=== PATIENT | male | born 1995 | race Caucasian/White ===

== ENCOUNTER 2020-12-12 07:04 | Emergency (ER) | payer BC ==
[~2020-12-12] VITALS: Ht 177.8 cm; Wt 95.2 kg
--- NOTE | 2020-12-12 07:37 | ED Psychosocial ---
General Chief Complaint: Suicidal Ideation Risk Stated Complaint: PSYCH EVAL-SUICIDAL IDEATIONS Source: patient Exam Limitations: no limitations History of Present Illness Date Seen by Provider: December 12, 2020 Time Seen by Provider: 07:25 Initial Comments Patient is a 25-year-old male who presents to the emergency department today with a chief complaint of increasing depressive symptoms and suicidal ideation. Patient states that he has struggled with depression for most of his life. He states that in recent weeks that he has had increasing thoughts of suicide. He states that he feels like he would take all of his medications or hang himself. Patient attributes the majority of his symptoms to poor family interactions, being estranged from his parents as well as a very stressful work environment. 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 He states that he has been missing increased amounts of work. States that he has had about a 30 pound weight loss over the last 3 months. He is not eating very well. He states his sleep is okay because some of his prescribed medications help with sleep. Patient states that he sees a mental health provider through [facility], once a months. He states its been about a month since he has seen his provider. He denies any recent illnesses such as fevers, chills, cough, congestion. No abdominal pain nausea vomiting. Patient states that he tends to have more diarrhea during stressful times. He has had that currently. All other review of systems reviewed and negative except as stated above. Timing/Duration: getting worse Severity: severe Associated Symptoms: suicidal ideation Allergies and Home Medications Allergies Coded Allergies: guaifenesin (Verified Allergy, Unknown, 12/12/20) Patient Home Medication List Home Medication List Reviewed: Yes Review of Systems Constitutional: see HPI EENTM: no symptoms reported Respiratory: no symptoms reported Cardiovascular: no symptoms reported Gastrointestinal: diarrhea Genitourinary: no symptoms reported Musculoskeletal: no symptoms reported Skin: no symptoms reported Psychiatric/Neurological: Depressed, Emotional Problems All Other Systems Reviewed Negative Unless Noted: Yes Physical Exam Vital Signs - First Documented 12/12/20 07:15 Temp 36.4 Pulse 65 Resp 18 B/P (MAP) 129/89 (102) Pulse Ox 97 O2 Delivery Room Air Capillary Refill : Height, Weight, BMI Height: '" Weight: lbs. oz. kg; BMI Method: General Appearance: WD/WN, no apparent distress HEENT: PERRL/EOMI Neck: normal inspection Respiratory: lungs clear, normal breath sounds, no respiratory distress, no accessory muscle use Cardiovascular: regular rate, rhythm, no edema, no gallop Gastrointestinal: normal bowel sounds, non tender, soft, no organomegaly Extremities: non-tender, normal inspection, no pedal edema Neurologic/Psychiatric: alert, normal mood/affect, oriented x 3 Appearance/Memory: appropriate appearance, appropriate insight, neat, no memory impairment Behavior/Eye Contact: cooperative, good eye contact, normal speech Thoughts/Hallucinations: normal thought pattern, no apparent hallucination Skin: normal color, warm/dry Progress/Results/Core Measures Results/Orders Lab Results Laboratory Tests Test 12/12/20 07:30 Range/Units White Blood Count 6.0 4.3-11.0 10^3/uL Red Blood Count 5.67 H 4.30-5.52 10^6/uL Hemoglobin 15.9 13.3-17.7 g/dL Hematocrit 49 40-54 % Mean Corpuscular Volume 86 80-99 fL Mean Corpuscular Hemoglobin 28 25-34 pg Mean Corpuscular Hemoglobin Concent 33 32-36 g/dL Red Cell Distribution Width 13.1 10.0-14.5 % Platelet Count 246 130-400 10^3/uL Mean Platelet Volume 9.8 9.0-12.2 fL Immature Granulocyte % (Auto) 1 % Neutrophils (%) (Auto) 54 42-75 % Lymphocytes (%) (Auto) 34 12-44 % Monocytes (%) (Auto) 7 0-12 % Eosinophils (%) (Auto) 3 0-10 % Basophils (%) (Auto) 1 0-10 % Neutrophils # (Auto) 3.3 1.8-7.8 10^3/uL Lymphocytes # (Auto) 2.1 1.0-4.0 10^3/uL Monocytes # (Auto) 0.4 0.0-1.0 10^3/uL Eosinophils # (Auto) 0.2 0.0-0.3 10^3/uL Basophils # (Auto) 0.0 0.0-0.1 10^3/uL Immature Granulocyte # (Auto) 0.0 0.0-0.1 10^3/uL Sodium Level 139 135-145 MMOL/L Potassium Level 4.1 3.6-5.0 MMOL/L Chloride Level 103 98-107 MMOL/L Carbon Dioxide Level 22 21-32 MMOL/L Anion Gap 14 5-14 MMOL/L Blood Urea Nitrogen 13 7-18 MG/DL Creatinine 0.87 0.60-1.30 MG/DL Estimat Glomerular Filtration Rate > 60 BUN/Creatinine Ratio 15 Glucose Level 115 H 70-105 MG/DL Calcium Level 9.9 8.5-10.1 MG/DL Corrected Calcium 8.5-10.1 MG/DL Total Bilirubin 0.5 0.1-1.0 MG/DL Aspartate Amino Transf (AST/SGOT) 16 5-34 U/L Alanine Aminotransferase (ALT/SGPT) 15 0-55 U/L Alkaline Phosphatase 60 40-136 U/L Total Protein 7.5 6.4-8.2 GM/DL Albumin 4.7 H 3.2-4.5 GM/DL Salicylates Level < 5.0 L 5.0-20.0 MG/DL Urine Opiates Screen NEGATIVE NEGATIVE Urine Oxycodone Screen NEGATIVE NEGATIVE Urine Methadone Screen NEGATIVE NEGATIVE Urine Propoxyphene Screen NEGATIVE NEGATIVE Acetaminophen Level < 10 L 10-30 UG/ML Urine Barbiturates Screen NEGATIVE NEGATIVE Ur Tricyclic Antidepressants Screen NEGATIVE NEGATIVE Urine Phencyclidine Screen NEGATIVE NEGATIVE Urine Amphetamines Screen NEGATIVE NEGATIVE Urine Methamphetamines Screen NEGATIVE NEGATIVE Urine Benzodiazepines Screen NEGATIVE NEGATIVE Urine Cocaine Screen NEGATIVE NEGATIVE Urine Cannabinoids Screen POSITIVE H NEGATIVE Serum Alcohol < 10 <10 MG/DL My Orders Orders - RAJ BURNS MD Ekg Tracing (12/12/20 08:05) Cbc With Automated Diff (12/12/20 08:05) Comprehensive Metabolic Panel (12/12/20 08:05) Salicylate (12/12/20 08:05) Acetaminophen (12/12/20 08:05) Alcohol (12/12/20 08:05) Drug Screen Stat (Urine) (12/12/20 08:05) General/Regular (12/12/20 Breakfast) Vital Signs/I&O 12/12/20 07:15 Temp 36.4 Pulse 65 Resp 18 B/P (MAP) 129/89 (102) Pulse Ox 97 O2 Delivery Room Air Progress Progress Note : Time: 12:16 Progress Note Patient seen and examined, 25-year-old male with a history of depression and increasing suicidal thoughts. Evaluation today includes medical clearance labs and an EKG. His labs have been reviewed and are unremarkable. He has a urine drug screen positive for THC. Mental health screener has evaluated the patient and did recommend some inpatient treatment. He does not meet criteria for involuntary commitment at this time. The patient prefers to increase the frequency and intensity of his outpatient therapy sessions. He is not interested in inpatient treatment at this time. He has a safe place to go which is home with his girlfriend. She is going to keep an eye on him for the next 24 to 48 hours, she is going to dispense his home medications. He will be contacted by [facility] on Monday for a follow-up. He is comfortable and desires discharge. He states that his suicidality has decreased since he has been here in the emergency department. He is not actively psychotic. He again does not meet criteria for involuntary commitment. He is going to call and increase the frequency of his therapy visits with [facility]. Safety plan was written by the mental health screener. Was signed by all parties involved. Patient will be discharged home with his significant other. Initial ECG Impression Date: December 12, 2020 Initial ECG Impression Time: 07:19 Initial ECG Rate: 58 Initial ECG Rhythm: Normal Sinus Initial ECG Intervals: Normal Initial ECG Impression: Normal Departure Impression Primary Impression: Depression Qualified Codes: F32.9 - Major depressive disorder, single episode, unspecified Additional Impression: Suicidal ideation Disposition: 01 HOME, SELF-CARE Condition: Stable Departure-Patient Inst. Decision time for Depature: 12:19 [address]errals: [facility]/SANJAY DARLING,LOCAL PHYSICIAN (PCP) Primary Care Physician Patient Instructions: OUTPT MENTAL HEALTH SERVICES, Depression, Adult ED Add. Discharge Instructions: Please call [facility] for a follow-up appointment for therapy on Monday or Monday as they are available. Please come back to the emergency room if you have any worsening depressive th oughts, suicidal thoughts or any other emergent concerns. Utilize the resources as provided by [facility] services today. Do not hesitate to reach out as needed or return to the emergency room. RAJ BURNS MD December 12, 2020 07:37
[2020-12-12 08:12] LABS: BASOPHILS % (AUTO) 1 % (0-10); EOSINOPHILS # (AUTO) 0.2 10^3/uL (0.0-0.3); EOSINOPHILS % (AUTO) 3 % (0-10); HEMATOCRIT 49 % (40-54); HEMOGLOBIN 15.9 g/dL (13.3-17.7); LYMPHOCYTES # (AUTO) 2.1 10^3/uL (1.0-4.0); LYMPHOCYTES % (AUTO) 34 % (12-44); MEAN CORPUSCULAR HEMOGLOBIN 28 pg (25-34); MEAN CORPUSCULAR HGB CONC 33 g/dL (32-36); MEAN CORPUSCULAR VOLUME 86 fL (80-99); MEAN PLATELET VOLUME 9.8 fL (9.0-12.2); MONOCYTES # (AUTO) 0.4 10^3/uL (0.0-1.0); MONOCYTES % (AUTO) 7 % (0-12); NEUTROPHILS # (AUTO) 3.3 10^3/uL (1.8-7.8); NEUTROPHILS % (AUTO) 54 % (42-75); PLATELET COUNT 246 10^3/uL (130-400)
[2020-12-12 08:16] LABS: ALBUMIN 4.7 GM/DL (3.2-4.5); CHLORIDE 103 MMOL/L (98-107); POTASSIUM 4.1 MMOL/L (3.6-5.0); SODIUM 139 MMOL/L (135-145)
[2020-12-12 08:17] LABS: CALCIUM 9.9 MG/DL (8.5-10.1)
[2020-12-12 08:19] LABS: GLUCOSE 115 MG/DL (70-105); TOTAL PROTEIN 7.5 GM/DL (6.4-8.2)
[2020-12-12 08:20] LABS: BILIRUBIN,TOTAL 0.5 MG/DL (0.1-1.0); CARBON DIOXIDE 22 MMOL/L (21-32)
[2020-12-12 08:22] LABS: CREATININE SERUM 0.87 MG/DL (0.60-1.30); GFR ESTIMATED > 60
[2020-12-12 08:23] LABS: ALKALINE PHOSPHATASE 60 U/L (40-136)
[2020-12-12 08:24] LABS: ACETAMINOPHEN < 10 UG/ML (10-30); BUN/CREATININE RATIO 15
[2020-12-12 08:25] LABS: AMPHETAMINE SCREEN, URINE NEGATIVE (NEGATIVE); BARBITURATE SCREEN URINE NEGATIVE (NEGATIVE); BENZODIAZEPINES SCREEN URINE NEGATIVE (NEGATIVE); CANNABINOID SCREEN, URINE POSITIVE (NEGATIVE); COCAINE SCREEN URINE NEGATIVE (NEGATIVE); METHADONE STAT NEGATIVE (NEGATIVE); METHAMPHETAMINE SCREEN URINE S NEGATIVE (NEGATIVE); OPIATE SCREEN URINE NEGATIVE (NEGATIVE); OXYCODONE STAT NEGATIVE (NEGATIVE); PROPOXYPHENE STAT NEGATIVE (NEGATIVE); SALICYLATE < 5.0 MG/DL (5.0-20.0); TRICYCLIC ANTIDEPRESSANTS SCRE NEGATIVE (NEGATIVE)
[2020-12-12 08:26] LABS: ALANINE AMINOTRANSFERASE 15 U/L (0-55)
[2020-12-12] MEDS ORDERED: PRAZ2CAP2 (09:32)
[2020-12-12] MEDS ORDERED: DESV100T16 (09:32)
[2020-12-12 12:30] VITALS: BP 132/87
== END 2020-12-12 12:30 | disposition home or self-care (01) ==
LOC: EDUNIT# 07:04 → ER 07:07
DX: R45.851 Suicidal ideations (principal); F32.9 Major depressive disorder, single episode, unspecified
CPT/HCPCS: 80053; 80306; 85025; 99283; G0480 ×3; 36415; 80320; 80329

== ENCOUNTER 2021-03-30 21:19 | Emergency (ER) | payer SELFPAY ==
[~2021-03-30] VITALS: Ht 180 cm; Wt 95.2 kg
[~2021-03-30 21:19] MED LIST: DESV100T16; PRAZ2CAP2
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
--- OUTSIDE RECORDS SUMMARY | 2021-03-30 21:23 | XMS REPORT | Clinical Summary ---
Author Author [facility][Note 3] Address Unknown Phone Unavailable Care Team Providers Care 3D Modeler Name Role Phone Unassigned, None PCP Unavailable Allergies Comments Active Allergy Reactions Severity Noted Date Guaifenesin Hives 01/26/2021 Medications End Date Status Medication Sig Dispensed Refills Start Date Active Cholecalciferol (VITAMIN Take 1 0 D3) 50 MCG (1999) CAPS capsule by mouth at bedtime. Active prazosin (MINIPRESS) 2 MG Take 4 mg by 0 capsule mouth at bedtime. Active ARIPiprazole (ABILIFY) 5 Take 5 mg by 0 MG tablet mouth at bedtime. Active Desvenlafaxine ER 100 MG Take 100 mg 0 TB24 by mouth at bedtime. Active hydrOXYzine (ATARAX) 50 Take 1 tablet 30 tablet 0 MG tabletIndications: (50 mg total) 1 Other specified anxiety by mouth 2 disorders (two) times daily as needed for Anxiety (or sleep). Active buPROPion (WELLBUTRIN XL) Take 1 tablet 30 tablet 0 150 MG 24 hr (150 mg 1 tabletIndications: Mood total) by disorder (HCC) mouth daily. 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 How often do you get together with friends or Twice a week 01/27/2021 relatives? How often do you attend pentecostal or orthodox Never 01/27/2021 services? Do you belong to any clubs or organizations such No 01/27/2021 as pentecostal groups, unions, fraternal or athletic groups, or [...] file Not on file Not on file Last Filed Vital Signs Reading Time Taken Comments Vital Sign 148/85 01/28/2021 9:18 AM CDT Blood Pressure 94 01/28/2021 9:18 AM CDT Pulse 36.9 C (98.5 F) 01/28/2021 9:17 AM CDT Temperature 16 01/27/2021 7:24 PM CDT Respiratory Rate 99% 01/28/2021 9:18 AM CDT Oxygen Saturation - - Inhaled Oxygen Concentration 92.5 kg (204 lb) 01/26/2021 10:51 AM CDT Weight 182.9 cm (6') 01/26/2021 10:51 AM CDT Height 27.67 01/26/2021 10:51 AM CDT Body Mass Index Plan of Treatment Health Maintenance Due Date Last Done Comments HPV Vaccines (1 - Male 2006 2-dose series) Varicella Vaccines (2 of 03/26/2009 02/26/2009 2 - 13+ 2-dose series) Hepatitis C Screening 2013 DTaP,Tdap,and Td Vaccines 2014 (1 - Tdap) MMR Vaccines-Adult 2014 COVID-19 Vaccine (2 - 03/01/2021 02/08/2021 Pfizer 2-dose series) Influenza Vaccine (#1) 2021 Pneumo-Vaccine: 65+Yrs (1 2060 of 1 - PPSV23) HIB Vaccines Aged Out No longer eligible based on patient's age to complete this topic IPV Vaccines Aged Out No longer eligible based on patient's age to complete this topic Meningococcal Vaccine Aged Out No longer eligib le based on patient's age to complete this topic Pneumo-Vaccine: Peds (0-5 Aged Out No longer el igible based on patient's age to Yrs) & At-Risk Patients complete this topic (6-64 Yrs) Rotavirus Vaccines Aged Out No longer eligible based on patient's age to complete this topic Procedures Comments Procedure Name Priority Date/Time Associated Diag nosis DRUG SCREEN (8) MEDICAL Routine 01/28/2021 5:53 AM CDT CBC WITH AUTO Timed 01/27/2021 DIFFERENTIAL 6:01 AM CDT LIPID PANEL Timed 01/27/2021 6:01 AM CDT TSH (REFLEX FREE T4 IF Timed 01/27/2021 ABNORMAL) 6:01 AM CDT COMPREHENSIVE METABOLIC Timed 01/27/2021 PANEL 6:01 AM CDT CBC AND DIFFERENTIAL Timed 01/27/2021 6:01 AM CDT VITAMIN D2/D3 TOTAL Routine 01/26/2021 1:27 PM CDT POC COVID-19 ANTIGEN, Routine 01/26/2021 VERITOR 10:20 AM CDT from Last 3 Months Results * Drug Screen (8) Medical (01/28/2021 5:53 AM CDT) Amphetamine Negative Negative Cutoff [address] [place] [place] ng/mL LAB[facility]ORY Barbiturates Negative Negative Cutoff [address] [place] ng/mL [facility] Benzodiazepines Negative Negative Cutoff [address] [place] ng/mL [facility] Opiates Negative Negative Cutoff [address] [place] ng/mL [facility] PCP Negative Negative Cutoff [address] [place] ng/mL [facility] THC Positive (A) Negative Cutoff [address] [place] ng/mL [facility] MDMA Positive (A) Negative Cutoff [address] [place] ng/mL [facility] Cocaine Negative Negative Cutoff [address] [place] (Metabolite) ng/mL LABORATORY pH, UA 6.5 5.0 - 8.0 [place] [facility] Specific 1.040 (H)Comment: Specimen is 1.003 - 1.030 [facility] [place], UA abnormally concentrated LABORATORY (>1.030) suggesting patient fluid restriction or specimen tampering. [id number] [facility] y Protocol LABORATORY Specimen Urine - Urine specimen (specimen) Narrative [facility] - 01/29/2021 8:09 AM CDT Results not confirmed. May not meet forensic requirements. Confirmation by GC/MS available upon request. Performing Organization Address City/State/ZIP Code P jaci Number [facility] [address] [place] [address] * CBC auto differential (01/27/2021 6:01 AM CDT) WBC 7.7 3.5 - 10.5 10E9/L [facility] RBC 5.57 4.32 - 5.72 10E12/L [facility] Hemoglobin 15.4 13.5 - 17.5 g/dL [facility] Hematocrit 48.6 38.8 - 50.0 % [facility] MCV 87.3 81.2 - 95.1 fL [facility] MCH 27.6 26.0 - 34.0 pg [facility] MCHC 31.7 31.0 - 37.0 g/dL [facility] RDW 13.0 11.8 - 15.6 % [facility] Platelets 252 150 - 450 10E9/L [facility] nRBC 0.00 <=0.00 10E9/L [facility] Neutrophils % 56.1 40.0 - 75.0 % [facility] Lymphocytes % 32.8 22.0 - 49.0 % [facility] Monocytes % 7.6 2.0 - 10.0 % [facility] Eosinophils % 2.6 <=5.0 % [facility] Basophils % 0.9 0.0 - 2.5 % [facility] Neutrophils 4.33 1.70 - 7.00 10E9/L [facility] [place] [facility] Lymphocytes 2.53 0.90 - 2.90 10E9/L [facility] [place] [facility] Monocytes 0.59 0.30 - 0.90 10E9/L [facility] Absolute LAB[facility] Eosinophils 0.20 0.05 - 0.50 10E9/L [facility] Absolute [facility] Basophils 0.07 0.00 - 0.30 10E9/L [facility] Absolute LAB[facility] % nRBC 0 % [facility] Specimen Blood Performing Organization Address City/[facility] P jaci Number [facility] [address] [place] [address] * TSH (Reflex Free T4 if abnormal) (01/27/2021 6:01 AM CDT) Pathologist [facility] TSH 1.576 0.400 - 4.000 uIU/mL [facility] Specimen Blood Performing Organization Address [facility] P jaci Number [facility] [address] [place] [address] * Lipid panel (01/27/2021 6:01 AM CDT) [facility] Cholesterol 134 <=200 mg/dL [facility] Triglycerides 145 0 - 149 mg/dL [facility] HDL <28 (L) 40 - 90 mg/dL [facility] Non-HDL Comment: Unable to calculate [facility] Cholesterol due to one or both results out LABORA TORY of reportable range. Specimen Blood Narrative [facility] - 01/27/2021 7:44 AM CDT [facility] GUIDLINES FOR LDL: Optimal: <100 mg/dL Near Optimal: 100-129 mg/dL Borderline High: 130-159 mg/dL High: 160-189 mg/dL Very High: >=190 mg/dL Performing Organization Address City/[facility] P jaci Number [facility] [address] [place] [address] * Comprehensive metabolic panel (01/27/2021 6:01 AM CDT) [facility] Sodium 142 136 - 145 mmol/L [facility] Potassium 4.4 3.6 - 4.9 mmol/L [facility] Chloride 109 99 - 111 mmol/L [facility] CO2 27 20 - 36 mmol/L [facility] Anion Gap [address] [facility] [facility] Glucose 101 74 - 106 mg/dL [facility] Total Protein 6.8 5.7 - 8.2 g/dL [facility] Albumin 4.8 3.4 - 4.8 g/dL [facility] Calcium 9.4 8.3 - 10.6 mg/dL [facility] BUN, Bld 18 6 - 20 mg/dL [facility] Creatinine 1.01 0.60 - 1.20 mg/dL [facility] L [facility] eGFR >59 >59 mL/min [facility] Total Bilirubin 0.8 0.0 - 1.2 mg/dL [facility] Alkaline 62 29 - 122 U/L [facility] Phosphatase LABORATORY ALT 12 10 - 46 U/L [facility] AST 18 16 - 37 U/L [facility] Specimen Blood Performing Organization Address City/[facility] P jaci Number [facility] [address] [place] [id number] * Vitamin D2/D3 Total (01/26/2021 1:27 PM CDT) [facility] Vitamin D2/D3 28 (L) 30 - 100 ng/ml [facility] Total LABORATORY Specimen Blood Narrative [facility] - 01/26/2021 2:38 PM CDT < 20 ng/mL Deficiency 20- 30 ng/mL Insufficiency 30-100 ng/mL Sufficiency > 100 ng/mL Consider toxicity The reference range for total Vitamin D, 25-Hydroxy is based on correlation with parameters that include PTH concentration and calcium absorption. The range is not based on the distribution of levels in an apparently healthy population. Please note new methodology and reference range. Performing Organization Address City/[facility] P jaci Number [facility] [address] [place] [address] * POC COVID-19 ANTIGEN, VERITOR (01/26/2021 10:20 AM CDT) Pathologist [facility] POC COVID-19 Negative Negative Antigen, Veritor Internal QC Pass Kit lot number [id number] Kit Exp Date 04/20/2021 Specimen Nasopharyngeal - Swab of internal nose (specimen) from Last 3 Months Insurance Type Payer Benefit Subscriber ID Effective Phone Address Plan / Dates Group MEDICAID POTENTIAL MEDICAID [id number] 2021- [address] [place] [address] Advance Directives For more information, please contact: [phone] Patient Author Explanation Type Date Recorded Advance Directives and Living Will Power of Aircraft Design Engineer Date Inactivated Comments Code Status Date Activated Full Code 01/28/2021 10:24 AM 01/28/2021 10:24 AM Full Code 01/26/2021 11:49 AM Care Teams Start Date End Date 3D Modeler Relationship Specialty 01/26/21 Unassigned, None PCP - General [place]
[2021-03-30 21:50] LABS: BILIRUBIN,URINE NEGATIVE (NEGATIVE); CLARITY,URINE CLEAR; COLOR,URINE YELLOW; GLUCOSE, URINE (UA) NEGATIVE (NEGATIVE); KETONES,URINE NEGATIVE (NEGATIVE); LEUKOCYTE ESTERASE ,URINE NEGATIVE (NEGATIVE); NITRITE,URINE NEGATIVE (NEGATIVE); PROTEIN,URINE NEGATIVE (NEGATIVE)
[2021-03-30 21:58] LABS: BACTERIA,URINE NEGATIVE /HPF; SQUAMOUS EPITHELIAL CELL,UR 0-2 /HPF
[2021-03-30 22:02] LABS: BASOPHILS # (AUTO) 0.1 10^3/uL (0.0-0.1); BASOPHILS % (AUTO) 1 % (0-10); EOSINOPHILS # (AUTO) 0.1 10^3/uL (0.0-0.3); EOSINOPHILS % (AUTO) 2 % (0-10); HEMATOCRIT 44 % (40-54); HEMOGLOBIN 14.6 g/dL (13.3-17.7); LYMPHOCYTES # (AUTO) 1.8 10^3/uL (1.0-4.0); LYMPHOCYTES % (AUTO) 23 % (12-44); MEAN CORPUSCULAR HEMOGLOBIN 28 pg (25-34); MEAN CORPUSCULAR HGB CONC 33 g/dL (32-36); MEAN CORPUSCULAR VOLUME 84 fL (80-99); MEAN PLATELET VOLUME 9.1 fL (9.0-12.2); MONOCYTES # (AUTO) 0.5 10^3/uL (0.0-1.0); MONOCYTES % (AUTO) 7 % (0-12); NEUTROPHILS % (AUTO) 67 % (42-75); PLATELET COUNT 275 10^3/uL (130-400); WHITE BLOOD COUNT 7.5 10^3/uL (4.3-11.0)
[2021-03-30 22:03] LABS: AMPHETAMINE SCREEN, URINE NEGATIVE (NEGATIVE); BARBITURATE SCREEN URINE NEGATIVE (NEGATIVE); BENZODIAZEPINES SCREEN URINE NEGATIVE (NEGATIVE); CANNABINOID SCREEN, URINE POSITIVE (NEGATIVE); COCAINE SCREEN URINE NEGATIVE (NEGATIVE); METHADONE STAT NEGATIVE (NEGATIVE); METHAMPHETAMINE SCREEN URINE S NEGATIVE (NEGATIVE); OPIATE SCREEN URINE NEGATIVE (NEGATIVE); OXYCODONE STAT NEGATIVE (NEGATIVE); PROPOXYPHENE STAT NEGATIVE (NEGATIVE); TRICYCLIC ANTIDEPRESSANTS SCRE NEGATIVE (NEGATIVE)
[2021-03-30 22:19] LABS: ALBUMIN 4.5 GM/DL (3.2-4.5); CHLORIDE 106 MMOL/L (98-107); POTASSIUM 3.7 MMOL/L (3.6-5.0); SODIUM 142 MMOL/L (135-145)
[2021-03-30 22:20] LABS: CALCIUM 9.7 MG/DL (8.5-10.1)
[2021-03-30 22:22] LABS: GLUCOSE 90 MG/DL (70-105); TOTAL PROTEIN 7.2 GM/DL (6.4-8.2)
[2021-03-30 22:23] LABS: CARBON DIOXIDE 26 MMOL/L (21-32)
[2021-03-30 22:24] LABS: BILIRUBIN,TOTAL 0.5 MG/DL (0.1-1.0)
[2021-03-30 22:26] LABS: ALKALINE PHOSPHATASE 56 U/L (40-136); CREATININE SERUM 0.91 MG/DL (0.60-1.30); GFR ESTIMATED 102
[2021-03-30 22:27] LABS: BUN/CREATININE RATIO 12
[2021-03-30 22:28] LABS: SALICYLATE < 5.0 MG/DL (5.0-20.0)
[2021-03-30 22:29] LABS: ALANINE AMINOTRANSFERASE 14 U/L (0-55)
[2021-03-30] MEDS ORDERED: LACTATED RINGERS 1,000 ML IV ONE (22:45)
[2021-03-30 22:46] LABS: ACETAMINOPHEN < 10 UG/ML (10-30)
[2021-03-30 22:48] LABS: TSH (THYROID ANALYZER) 1.26 UIU/ML (0.35-4.94)
--- NOTE | 2021-03-31 00:54 | ED Psychosocial ---
General Chief Complaint: Substance Abuse Stated Complaint: SUICIDE ATTEMPT, OVERDOSE Nursing Triage Note: PT ARRIVES VIA EMS TO ROOM 8 AFTER HAVING AN ARGUEMENT WITH CEASAR S/O AT HOME THEN CONSUMING 4 OF HIS PRESCRIBED PRAZOSIN AMD STATING THAT HE WANTED TO END IT ALL TODAY. VERBALIZES A HX OF SI Source: patient, family Exam Limitations: no limitations History of Present Illness Date Seen by Provider: Mar 30, 2021 Time Seen by Provider: 21:43 Initial Comments This 25-year-old young man presents to the emergency room via [facility] after taking 4 tablets of prazosin 2 mg in an attempt to harm himself. He has had a long struggle with depression and states he wanted to go to sleep and not wake up. He admits to this being a suicide attempt. He is currently under the care of [facility] and sees Roberta Andino. He also has a therapist with [facility]. He has tried numerous medications according to his report, none of which have been very effective. He admits that he is often not honest with his prescribers about the lack of efficacy with his medications. He states his depression is very disruptive to his ability to function in society. He cannot hold a job and spends much time at home and crying. He is not motivated to get out of bed many days. At this time he has stable vital signs and feels drowsy but is otherwise alert and oriented. He denies any drug or alcohol use. He has had inpatient admission in the past for treatment of depression. He reports the 3-day stay was not helpful and he would not voluntarily consent to inpatient admission again because of that experience. Patient states he has a supportive family and significant other. His father is present with him here tonight. It was the significant other who contacted EMS initially. Allergies and Home Medications Allergies Coded Allergies: guaifenesin (Verified Allergy, Unknown, 12/12/20) Patient Home Medication List Home Medication List Reviewed: Yes Desvenlafaxine Succinate (Desvenlafaxine Succinate ER) 100 Mg Tab.er.24h, (Reported) Entered as Reported by: ALLEN ERVIN on 12/12/20931 Prazosin HCl (Prazosin HCl) 2 Mg Capsule, (Reported) Entered as Reported by: ALLEN ERVIN on 12/12/20931 Review of Systems Constitutional: no symptoms reported EENTM: no symptoms reported Respiratory: no symptoms reported Cardiovascular: no symptoms reported Gastrointestinal: no symptoms reported Genitourinary: no symptoms reported Musculoskeletal: no symptoms reported Skin: no symptoms reported Psychiatric/Neurological: See HPI Past [id number] Hx Patient Social History Tobacco Use?: No Substance use?: No Alcohol Use?: No Immunizations Up To Date Influenza Vaccine Up-to-Date: Yes; Up-to-Date Seasonal Allergies Seasonal Allergies: No Past Medical History Surgeries: No Respiratory: No Cardiac: No Neurological: No Genitourinary: No Gastrointestinal: No Musculoskeletal: No Endocrine: No HEENT: No Cancer: No Psychosocial: Yes (SUICIDAL IDEATION X 2 YEARS.) Anxiety, Depression Integumentary: No Physical Exam Vital Signs - First Documented 03/30/21 21:24 Temp 36.4 Pulse 76 Resp 18 B/P (MAP) 117/97 (104) Pulse Ox 98 O2 Delivery Room Air Capillary Refill : Less Than 3 Seconds Height, Weight, BMI Height: '" Weight: lbs. oz. kg; 29.00 BMI Method: General Appearance: WD/WN, no apparent distress HEENT: normal ENT inspection, pharynx normal Neck: normal inspection Respiratory: lungs clear, normal breath sounds, no respiratory distress, no accessory muscle use Cardiovascular: regular rate, rhythm, no edema, no murmur Gastrointestinal: non tender, soft Extremities: normal inspection, no pedal edema Neurologic/Psychiatric: national business director II-XII nml as tested, no motor/sensory deficits, alert, normal mood/affect, oriented x 3, abnormal national business director II-XII Appearance/Memory: appropriate appearance, appropriate insight Behavior/Eye Contact: cooperative, good eye contact, normal speech Thoughts/Hallucinations: other (Admits to suicidal ideation with plan and intent) Skin: normal color, warm/dry Progress/Results/Core Measures Results/Orders Lab Results Laboratory Tests Test 03/30/21 21:40 03/30/21 21:55 Range/Units Urine Color YELLOW Urine Clarity CLEAR Urine pH 6.0 5-9 Urine Specific Wesley 1.020 1.016-1.022 Urine Protein NEGATIVE NEGATIVE Urine Glucose (UA) NEGATIVE NEGATIVE Urine Ketones NEGATIVE NEGATIVE Urine Nitrite NEGATIVE NEGATIVE Urine Bilirubin NEGATIVE NEGATIVE Urine Urobilinogen 1.0 < = 1.0 MG/DL Urine Leukocyte Esterase NEGATIVE NEGATIVE Urine RBC (Auto) NEGATIVE NEGATIVE Urine RBC NONE /HPF Urine WBC NONE /HPF Urine Squamous Epithelial Cells 0-2 /HPF Urine Crystals NONE /LPF Urine Bacteria NEGATIVE /HPF Urine Casts NONE /LPF Urine Mucus MODERATE H /LPF Urine Culture Indicated NO Urine Opiates Screen NEGATIVE NEGATIVE Urine Oxycodone Screen NEGATIVE NEGATIVE Urine Methadone Screen NEGATIVE NEGATIVE Urine Propoxyphene Screen NEGATIVE NEGATIVE Urine Barbiturates Screen NEGATIVE NEGATIVE Ur Tricyclic Antidepressants Screen NEGATIVE NEGATIVE Urine Phencyclidine Screen NEGATIVE NEGATIVE Urine Amphetamines Screen NEGATIVE NEGATIVE Urine Methamphetamines Screen NEGATIVE NEGATIVE Urine Benzodiazepines Screen NEGATIVE NEGATIVE Urine Cocaine Screen NEGATIVE NEGATIVE Urine Cannabinoids Screen POSITIVE H NEGATIVE White Blood Count 7.5 4.3-11.0 10^3/uL Red Blood Count 5.22 4.30-5.52 10^6/uL Hemoglobin 14.6 13.3-17.7 g/dL Hematocrit 44 40-54 % Mean Corpuscular Volume 84 80-99 fL Mean Corpuscular Hemoglobin 28 25-34 pg Mean Corpuscular Hemoglobin Concent 33 32-36 g/dL Red Cell Distribution Width 12.8 10.0-14.5 % Platelet Count 275 130-400 10^3/uL Mean Platelet Volume 9.1 9.0-12.2 fL Immature Granulocyte % (Auto) 0 % Neutrophils (%) (Auto) 67 42-75 % Lymphocytes (%) (Auto) 23 12-44 % Monocytes (%) (Auto) 7 0-12 % Eosinophils (%) (Auto) 2 0-10 % Basophils (%) (Auto) 1 0-10 % Neutrophils # (Auto) 5.0 1.8-7.8 10^3/uL Lymphocytes # (Auto) 1.8 1.0-4.0 10^3/uL Monocytes # (Auto) 0.5 0.0-1.0 10^3/uL Eosinophils # (Auto) 0.1 0.0-0.3 10^3/uL Basophils # (Auto) 0.1 0.0-0.1 10^3/uL Immature Granulocyte # (Auto) 0.0 0.0-0.1 10^3/uL Sodium Level 142 135-145 MMOL/L Potassium Level 3.7 3.6-5.0 MMOL/L Chloride Level 106 98-107 MMOL/L Carbon Dioxide Level 26 21-32 MMOL/L Anion Gap 10 5-14 MMOL/L Blood Urea Nitrogen 11 7-18 MG/DL Creatinine 0.91 0.60-1.30 MG/DL Estimat Glomerular Filtration Rate 102 BUN/Creatinine Ratio 12 Glucose Level 90 70-105 MG/DL Calcium Level 9.7 8.5-10.1 MG/DL Corrected Calcium 9.3 8.5-10.1 MG/DL Total Bilirubin 0.5 0.1-1.0 MG/DL Aspartate Amino Transf (AST/SGOT) 15 5-34 U/L Alanine Aminotransferase (ALT/SGPT) 14 0-55 U/L Alkaline Phosphatase 56 40-136 U/L Total Protein 7.2 6.4-8.2 GM/DL Albumin 4.5 3.2-4.5 GM/DL TSH Otero Testing 1.26 0.35-4.94 UIU/ML Salicylates Level < 5.0 L 5.0-20.0 MG/DL Acetaminophen Level < 10 L 10-30 UG/ML Serum Alcohol < 10 <10 MG/DL My Orders Orders - SHANELL GIRON MD Ua Culture If Indicated (03/30/21 21:43) Cbc With Automated Diff (03/30/21 21:43) Comprehensive Metabolic Panel (03/30/21 21:43) Alcohol (03/30/21 21:43) Drug Screen Stat (Urine) (03/30/21 21:43) Acetaminophen (03/30/21 21:43) Salicylate (03/30/21 21:43) Ekg Tracing (03/30/21 21:43) Ed Iv/Invasive Line Start (03/30/21 21:43) Monitor-Rhythm Ecg Trace Only (03/30/21 21:43) Bh Status Checks/Observation Q15M (03/30/21 21:43) Ed Iv/Invasive Line Start (03/30/21 21:43) Thyroid Analyzer (03/30/21 21:55) Lactated Ringers (Lr 1000 Ml Iv Solution (03/30/21 22:45) Medications Given in ED Current Medications Medications Dose Ordered Sig/[place] Route Start Time Stop Time Status Last Admin Dose Admin Lactated Ringer's 1,000 ml @ 0 mls/hr Q0M ONCE IV 03/30/21 22:45 03/30/21 22:46 DC 03/30/21 22:55 1,000 MLS/HR Vital Signs/I&O 03/30/21 03/31/21 21:24 04:58 Temp 36.4 36.4 Pulse 76 75 Resp 18 16 B/P (MAP) 117/97 (104) 132/73 Pulse Ox 98 98 O2 Delivery Room Air Room Air Blood Pressure Mean: 104 Progress Progress Note #1: Time: 00:56 Progress Note Nursing staff contacted poison control and discussed plan. They recommended a 6-hour observation from time of ingestion. Patient will be screened toward the end of that observation. He has so far been medically cleared based on exam and labs. Progress Note #2: Time: 01:05 Progress Note I have contacted the screening service and they will review his chart. Progress Note #3: Progress Note Safety plan was developed with the screener and patient was discharged into the care of his father. Initial ECG Impression Date: Mar 30, 2021 Initial ECG Impression Time: 21:43 Initial ECG Rate: 61 Initial ECG Rhythm: Normal Sinus Initial ECG Intervals: Normal Initial ECG Impression: Normal Comment Normal sinus rhythm with no ST elevation or depression. No abnormal intervals or axis deviation. Departure Impression Primary Impression: Suicide attempt by drug overdose Additional Impression: Depression Qualified Codes: F33.2 - Major depressive disorder, recurrent severe without psychotic features Disposition: 01 HOME, SELF-CARE Condition: Improved Departure-Patient Inst. Decision time for Depature: 04:53 Referrals: NO,LOCAL PHYSICIAN (PCP/Family) Primary Care Physician Patient Instructions: ALCOHOL AND SUBSTANCE ABUSE Add. Discharge Instructions: Follow your safety plan. Call with questions or concerns. Call the [facility] crisis line at [phone] or [phone] if you have additional behavioral health emergencies. All discharge instructions reviewed with patient and/or family. Voiced understanding. SHANELL GIRON MD Mar 31, 2021 00:54
[2021-03-31 04:58] VITALS: BP 132/73
== END 2021-03-31 05:03 | disposition home or self-care (01) ==
LOC: EDUNIT# 21:19 → ER 21:20
DX: T14.91XA Suicide attempt, initial encounter (principal); F32.9 Major depressive disorder, single episode, unspecified; X83.8XXA Intentional self-harm by other specified means, initial encounter
CPT/HCPCS: 80053; 80306; 81000; 84443; 85025; 93005; 93041; 99284; G0480 ×3; 36415; 80320; 80329